=== PATIENT | male | born 1970 ===

== ENCOUNTER 2018-08-25 23:50 | Emergency (ER) | payer MEDICAID ==
[2018-08-25 23:58] VITALS: BMI 21.6
--- NOTE | 2018-08-26 00:24 | ED PDOC ---
Arrival/HPI - General Chief Complaint: Alcohol Ingestion Time Seen by Provider: 08/25/18 23:58 Historian: Patient - History of Present Illness Narrative History of Present Illness (Text): 08/26/18 23:58 Harvinder Carson is a 48 year old male with no significant past medical history who presents to the emergency department for alcohol abuse. Patient admits to drinking alcohol tonight. Patient fell and hit the right side of his face, sustaining an abrasion to the right temporal region. Patient denies any fevers, chills, headache, dizziness, chest pain, shortness of breath, dyspnea on exertion, cough, abdominal pain, nausea, vomiting, diarrhea, back pain, neck pain, or any other complaint. Time/Duration: Prior to Arrival Symptom Onset: Sudden Activities at Onset: Light Context: Home Past Medical History - Provider Review Nursing Documentation Reviewed: Yes - Psychiatric Hx Substance Use: No Family/Social History - Physician Review Nursing Documentation Reviewed: Yes Family/Social History: Unknown Family HX Smoking Status: Unknown If Ever Smoked Hx Alcohol Use: Yes Hx Substance Use: No Allergies/Home Meds Allergies/Adverse Reactions: Allergies No Known Allergies Allergy (Verified 08/25/18 23:58) Review of Systems - Physician Review All systems were reviewed & negative as marked: Yes - Review of Systems Constitutional: absent: Fevers, Night Sweats Cardiovascular: absent: Chest Pain Gastrointestinal: absent: Abdominal Pain, Diarrhea, Nausea, Vomiting Musculoskeletal: absent: Back Pain, Neck Pain Physical Exam Vital Signs Reviewed: Yes Vital Signs Temp Pulse Resp BP Pulse Ox 08/26/18 00:11 97.8 F 77 18 127/91 H 96 Temperature: Afebrile Blood Pressure: Normal Pulse: Regular Respiratory Rate: Normal Appearance: Positive for: Well-Appearing, Non-Toxic, Comfortable Pain Distress: None Mental Status: Positive for: Alert and Oriented X 3 - Systems Exam Head: Present: Normocephalic, Abrasion (right temporal region) Pupils: Present: PERRL Extroacular Muscles: Present: EOMI Conjunctiva: Present: Normal Mouth: Present: Moist Mucous Membranes Neck: Present: Normal Range of Motion Respiratory/Chest: Present: Clear to Auscultation, Good Air Exchange. No: Respiratory Distress, Accessory Muscle Use Cardiovascular: Present: Regular Rate and Rhythm, Normal S1, S2. No: Murmurs Abdomen: No: Tenderness, Distention, Peritoneal Signs Back: Present: Normal Inspection Upper Extremity: Present: Normal Inspection. No: Cyanosis, Edema Lower Extremity: Present: Normal Inspection. No: Edema Neurological: Present: GCS=15, CN II-XII Intact, Speech Normal Skin: Present: Warm, Dry, Normal Color. No: Rashes Psychiatric: Present: Alert, Oriented x 3, Normal Insight, Normal Concentration Medical Decision Making ED Course and Treatment: 08/26/18 23:58 Impression: Patient is a 48 year old male who presents to the emergency department for alcohol abuse. Plan: -- CT Head W/O Contrast -- Reassess and disposition Prior Visits: Notes and results from previous visits were reviewed. Progress Notes: 08/26/18 01:38 CT Head: BRAIN: No acute intraparenchymal hemorrhage. No mass lesion. No CT evidence for acute territorial infarct. No midline shift or extra-axial collections. VENTRICLES: No hydrocephalus. ORBITS: The orbits are unremarkable. SINUSES AND MASTOIDS: The paranasal sinuses and mastoid air cells are clear. BONES: No fracture. SOFT TISSUES: Unremarkable. MISCELLANEOUS: No acute intracranial pathology. IMPRESSION: No acute intracranial pathology. Electronically signed on Aug 26, 2018 1:29:06 AM EST by: Jacoby Parra M.D., MBA Certified By [facility] & [facility] Fellowship Trained MRI and CT Specialist - RAD Interpretation Radiology Orders: 08/26/18 00:15 HEAD W/O CONTRAST [CT] Stat Coil Maker: Radiologist - Scribe Statement The provider has reviewed the documentation as recorded by the Scribe Jacoby lopez with Rosanna All medical record entries made by the Scribe were at my direction and personally dictated by me. I have reviewed the chart and agree that the record accurately reflects my personal performance of the history, physical exam, medical decision making, and the department course for this patient. I have also personally directed, reviewed, and agree with the discharge instructions and disposition. Disposition/Present on Arrival - Present on Arrival Any Indicators Present on Arrival: No History of DVT/PE: No History of Uncontrolled Diabetes: No Urinary Catheter: No History of Decub. Ulcer: No History Surgical Site Infection Following: None - Disposition Have Diagnosis and Disposition been Completed?: Yes Diagnosis: Head injury, Abrasion Disposition: HOME/ ROUTINE Disposition Time: 06:20 Patient Problems: Current Active Problems Problem Status Onset Abrasion Acute Head injury Acute Condition: GOOD Discharge Instructions (ExitCare): Closed Head Injury Forms: [employer] (Turkish)
[2018-08-26 05:24] VITALS: RESP 20
[2018-08-26 07:12] VITALS: BP 110/75; PULSE 65; TEMP 97.5; O2SAT 99
--- NOTE | 2018-08-26 10:22 | CT ---
Date of service: 08/26/2018 PROCEDURE: CT HEAD WITHOUT CONTRAST. HISTORY: Status post fall COMPARISON: None available. TECHNIQUE: Axial computed tomography images were obtained through the head/brain without intravenous contrast. Radiation dose: Total exam DLP = 876.03 mGy-cm. This CT exam was performed using one or more of the following dose reduction techniques: Automated exposure control, adjustment of the mA and/or kV according to patient size, and/or use of iterative reconstruction technique. FINDINGS: HEMORRHAGE: No acute parenchymal, subarachnoid or extra-axial hemorrhage. BRAIN: Minor chronic periventricular white matter ischemic changes seen extending peripherally into the deep and subcortical white matter both cerebral hemispheres. Moderate to fairly significant central volume loss evidenced by disproportionate enlargement of the ventricles as compared the sulci. Additionally, there is also some mild asymmetry of the ventricular size right larger than left. This may in part be secondary to an underlying anatomic variation as well not withstanding central volume loss. VENTRICLES: No obstructive hydrocephalus. CALVARIUM: There are no acute calvarial fractures. Note made of mild right lateral periorbital/supraorbital and frontotemporal scalp swelling. PARANASAL SINUSES: Unremarkable as visualized. No significant inflammatory changes. MASTOID AIR CELLS: Unremarkable as visualized. No inflammatory changes. OTHER FINDINGS: None. IMPRESSION: No acute intracranial hemorrhage. Minor chronic white matter ischemic changes. Moderate central volume loss as described. Mild right lateral periorbital/supraorbital and right frontotemporal scalp swelling.
== END 2018-08-26 06:30 | disposition home or self-care (01) ==
LOC: ED 23:50
DX: S00.81XA Abrasion of other part of head, initial encounter (principal); W19.XXXA Unspecified fall, initial encounter